=== PATIENT | female | born 1995 ===

== ENCOUNTER 2019-03-19 05:08 | Inpatient (IN) | payer SELFPAY ==
[2019-03-19 06:34] VITALS: BMI 29.7
[2019-03-19] MEDS ORDERED: Lactated Ringer's 1,000 ML IV ONE (06:34)
[2019-03-19] MEDS ORDERED: Oxytocin 30 UNIT in NS 500 ml 30 UNITS/500 ML BAG IV ONE (06:35)
[2019-03-19] MEDS ORDERED: OXYTOCIN/0.9 % NS 20 UNIT/1,000 ML BAG IV SCH (06:45)
[2019-03-19] MEDS ORDERED: Lactated Ringer's 1,000 ML IV SCH (06:45)
[2019-03-19 07:25] LABS: BASO % 0.3 % (0.0-2.0); EOS # 0.1 K/uL (0.0-0.7); HEMOGLOBIN 10.2 g/dL (12.0-16.0); LYMPH % 30.4 % (20.0-40.0); MEAN CELL VOLUME 74.2 fl (81.0-99.0); MEAN CORPUSCULAR HEMOGLOBIN 23.4 pg (27.0-31.0); MEAN CORPUSCULAR HGB CONC 31.6 g/dL (33.0-37.0); MEAN PLATELET VOLUME 8.1 fl (7.2-11.7); MONO # 0.6 K/uL (0.0-0.8); MONO % 8.6 % (0.0-10.0); NEUT # 3.9 K/uL (1.8-7.0); NEUT % 59.7 % (50.0-75.0); NRBC % 0.1 % (0.0-0.0); RBC 4.35 Mil/uL (3.80-5.20); WHITE BLOOD COUNT 6.5 K/uL (4.8-10.8)
[2019-03-19 07:40] VITALS: RESP 18; TEMP 98.2; O2SAT 100
[2019-03-19] MEDS ORDERED: Bupivacaine HCl 0.5% PF (30 ml) Inj ONE (08:11)
[2019-03-19] MEDS ORDERED: Fentanyl/Bupivacaine HCl 250 ML EPI ONE (08:12)
--- NOTE | 2019-03-19 08:23 | OBADHP ---
Datetime: 03/19/2019 07:13 Admit Comment, IP Provider: 23 yo f 39.6 wk presented to [facility] due to contraction every 10min th at started at 20:00 03/18/19. Patient report noting some vaginal discharge but no blood or watergush. Otherwise patient have no complains. Pt report good movement, Last US Wensday. PCP: Dr Smith Allergy none PMH none PSH none OBGYN 1 NVD PFH none Social denies smoking drinking or drug use 6:00 Assessment and plan 23 yo f 39.6 wk presented to [facility] due to contraction that started at 20:00 03/18/19. Admitted to unit for active labor Vitals WNL strip reassuring Start labor protocol LR 1L at 999 LR 1L at 125 CBC, type and screen pitocin for after delivery of placenta Ysabri PGY1 Case discussed with Attending Addendum: I saw and examined patient at presentation. Plan to admit for management of labor. heart t racing category 1. Discussed plan with patient and all patient questions answered. Mervin FHR - Baseline A Provider: 135 Comments, ACOG Physical Exam: Heart no extra heart sound lung clear abdomen nontender BS+ Gestation - Est Wks by US: 39.6 Vital Signs Provider: Reviewed; Within Normal Limits IP Chief Complaint: Uterine contractions NICHD Variability Prov Fetus A: Moderate 6-25bpm NICHD Accel Fetus A IP Provider: [id number] FHR Category Provider Fetus A: Category I NICHD Decel Fetus A IP Provider: None Dilatation, Provider: 4 Effacement, Provider: 90 Station, Provider: -1 EGA AdmitDate IP: 39.6 IP Adm Impression: Term, intrauterine IP Admit Plan: Initiate labor protocol Datetime: 03/19/2019 05:57 Pelvic Type - PN: Adequate Extremities - PN: Normal Abdomen - PN: Normal Back - PN: Not Done Breast - PN: Normal Lungs - PN: Normal Heart - PN: Normal Thyroid - PN: Normal Neurologic - PN: Normal HEENT - PN: Normal General - PN: Normal Genitourinary Exam: Normal DTRs - PN: Not Done
[2019-03-19] MEDS ORDERED: Lidocaine 1% Inj (20ml) ONE (10:27)
[2019-03-19] MEDS ORDERED: Benzocaine/Menthol SPRAY TOP PRN ×2 (12:51→19:43)
[2019-03-19] MEDS ORDERED: Oxycodone/Acetaminophen 5/325 mg Tab PO PRN ×2 (12:51→19:43)
[2019-03-20 07:39] LABS: BASO % 0.3 % (0.0-2.0); EOS # 0.1 K/uL (0.0-0.7); EOS % 0.9 % (0.0-4.0); HEMOGLOBIN 8.7 g/dL (12.0-16.0); LYMPH # 1.7 K/uL (1.0-4.3); LYMPH % 21.7 % (20.0-40.0); MEAN CELL VOLUME 74.7 fl (81.0-99.0); MEAN CORPUSCULAR HGB CONC 32.1 g/dL (33.0-37.0); MEAN PLATELET VOLUME 8.3 fl (7.2-11.7); MONO # 0.7 K/uL (0.0-0.8); MONO % 8.3 % (0.0-10.0); NEUT # 5.5 K/uL (1.8-7.0); NEUT % 68.8 % (50.0-75.0); RBC 3.61 Mil/uL (3.80-5.20); RED CELL DISTRIBUTION WIDTH 16.2 % (11.5-14.5); WHITE BLOOD COUNT 7.9 K/uL (4.8-10.8)
--- NOTE | 2019-03-20 12:31 | OBPPN ---
Datetime: 03/20/2019 05:55 PP Pain Prov: Within normal limits PP Nausea Prov: Denies PP Flatus Prov: Yes PP BM Prov: No PP Breasts Prov: Not Done PP Heart Prov: Normal PP Lungs Prov: Normal PP Abdomen/Uterus Prov: Normal PP Lochia Prov: Normal PP Vulva/Perineum Prov: Normal PP CVA Tenderness Prov: Normal PP Extremities Prov: Normal PP C/S Incision Prov: Not Applicable PP Progress Prov: Normal PP Comments Phys Exam Prov: See note PP Impression Prov: Normal progression PP Plan Prov: Continue present management PP Progress Note Prov: 23 yo S/p NVD 39.6 wk SP normal vaginal delivery PPD 1. Patient was see n and examined at bedside today. No acute event overnight, pain controlled with medication. Patient a ble to ambulate to bathroom, pass urine with no difficulty, tolerate regular diet. Patient have passe d flatus but no BM. Lochia is equal to menses. Denies fevers, chills, dizziness, chest pain, SOB, N/V /D, hematuria or dysuria. VS: stable GEN: NAD Cardio: RRR, S1S2 present, no murmurs noted Lungs: clear breath sounds b/l, no wheezing Abdomen: BS+, appropriate tenderness to palpitation,Uterus is firm and at the level of the umbilic us. EXT: No edema, Jalen's negative NEURO/PSYCH: AAOx3, no grossly focal deficits, preserved affect and mood. A/P: 23 yo S/p NVD 39.6 wk SP normal vaginal delivery PPD 1 . afebrile, tolerating pain with medi cation, hemodynamically stable -encouraged ambulation -Motrin 600mg po q6h for pain as per pain scale Percocet 5/325 PO Q4H PRN pain -Encourage -Continue vit -Continue same management -discharge on 03/21/19 YStdi PGY1 Case discussed with Attending Attending Note: Patient was seen and discussed with the resident and I agree with the above assessment. Vital Signs Provider PP: Reviewed; Within Normal Limits
[2019-03-21] MEDS ORDERED: oxyCODONE 5 mg Immediate Release Tab PO PRN (05:01)
--- NOTE | 2019-03-21 09:03 | OBDCSUM ---
Datetime: 03/21/2019 07:47 Discharged to, Provider: Home Follow up at, Provider: [facility] Disch Instr Activity: Normal activity Disch Instr Diet: Regular Discharge Instructions, Provider: Routine instructions given Discharge Diagnosis, Provider: Term Delivered Discharge Time: 03/21/2019 09:00 Follow up in weeks, Provider: 4 weeks Disch Referrals: None Contraception discussed, Prov: Yes Disch Activity Restrictions: No sexual activity; Nothing in vagina - [place], tampons, douche Discharge Comment, Provider: 23 YO S/P NVD at 39.6 wk GA, had baby girl on 03/19/19. : Male, Wt. 3605 gm, 9/9 Post- D/C Summary: 23 YO S/P NVD on 03/19/19 at 39.6 wk GA. Intrapartum: EBL 200 ml, vag inal first degree laceration was repaired. No complications during post- period, today on her day 2 PPD with normal progression . Lochia is less than menses. Pt able to pass flatus, has passed a bowel movement. Voiding well and able to ambulate without difficulty. Tolerating regular di et w/o N/V. Fundus firm below umbilicus level. Pt is hemodynamically stable. H/H: 8.7/27.0 Discharge Instructions given to patient: Encourage PNV 1 tab po q/day Ibuprofen 400 mg 1 tab po prn q4-6 if moderate pain. Ambulatory with caution, nothing per vagina/sex for 4 weeks, no heavy lifting, avoid stairs, if ex cessive bleeding or fever without relief from Tylenol go to ED ED precautions: If excessive bleeding, pain that does not get relief, fever >100.4, palpitations, SOB, CP or other concerning symptom go to the ED. PT was urged if feeling sad, mood swing, depression, neglect of baby, suicidal thoughts, homicidal thoughts go to ER or call 911 for help Follow-up with [facility] (Dr Smith) in 4 weeks for post- check. Jarocho Singer MD PGY 1 Contraception after Delivery: Undecided
--- NOTE | 2019-03-21 09:04 | OBPPN ---
Datetime: 03/21/2019 07:43 PP Pain Prov: Within normal limits PP Nausea Prov: Denies PP Flatus Prov: Yes PP BM Prov: Yes PP Breasts Prov: Not Done PP Heart Prov: Normal PP Lungs Prov: Normal PP Abdomen/Uterus Prov: Normal PP Lochia Prov: Normal PP Vulva/Perineum Prov: Not Done PP CVA Tenderness Prov: Not Done PP Extremities Prov: Normal PP C/S Incision Prov: Not Applicable PP Progress Prov: Normal PP Impression Prov: Normal progression PP Plan Prov: Continue present management PP Progress Note Prov: 23 yo S/p NVD 39.6 wk SP normal vaginal delivery PPD 2. Patient was see n and examined at bedside today. No acute event overnight, pain controlled with medication. Patient a ble to ambulate to bathroom, pass urine with no difficulty, tolerate regular diet. Patient have passe d flatus but no BM. Lochia is equal to menses. Denies fevers, chills, dizziness, chest pain, SOB, N/V /D, hematuria or dysuria. VS: stable GEN: NAD Cardio: RRR, S1S2 present, no murmurs noted Lungs: clear breath sounds b/l, no wheezing Abdomen: BS+, appropriate tenderness to palpitation,Uterus is firm and at the level of the umbilic us. EXT: No edema, Jalen's negative NEURO/PSYCH: AAOx3, no grossly focal deficits, preserved affect and mood. A/P: 23 yo S/p NVD 39.6 wk SP normal vaginal delivery PPD 2 . afebrile, tolerating pain with medi cation, hemodynamically stable -encouraged ambulation -Motrin 600mg po q6h for pain as per pain scale Percocet 5/325 PO Q4H PRN pain -Encourage -Continue vit -Continue same management -discharge on 03/21/19 KMcKitish PGY1 Case discussed with Attending Attending Note: patient was discussed with the resident and I agree with the above. IP PP Procedures: None Vital Signs Provider PP: Reviewed
[2019-03-21] MEDS ORDERED: Measles, Mumps, and Rubella 0.5 ML VIAL SC ONE (10:30)
[2019-03-21 17:13] VITALS: BP 104/63; PULSE 76
== END 2019-03-21 13:00 | disposition home or self-care (01) | DRG 560 ==
LOC: H.EROB2 05:08 → H.L&D 07:38 → H.OB/GYN 16:00
PROVIDERS: ADMIT Obstetrics & Gynecology; ATTEND Obstetrics & Gynecology
PROC: 10E0XZZ Delivery of Products of Conception, External Approach (ICD-10-PCS; principal; 2019-03-19)
PROC: 0HQ9XZZ Repair Perineum Skin, External Approach (ICD-10-PCS; 2019-03-19)
PROC: 4A1HXCZ Monitoring of Products of Conception, Cardiac Rate, External Approach (ICD-10-PCS; 2019-03-19)
DX: O77.0 Labor and delivery complicated by meconium in amniotic fluid (principal); O70.0 First degree perineal laceration during delivery; Z37.0 Single live birth; Z3A.39 39 weeks gestation of pregnancy